=== PATIENT | female | born 1950 | race African-American/Black ===

== ENCOUNTER 2017-02-06 22:25 | Inpatient (IN) | payer SELFPAY ==
[~2017-02-06] VITALS: Ht 162.6 cm; Wt 79.5 kg
[~2017-02-06 22:25] MED LIST: NORVASC2.5 MG OR
--- NOTE | 2017-02-06 22:25 | NUR ---
PATIENT WAS BROUIGHT INTO THE ER VIA W/[employer] SERVICES UNRESPONSIVE, DIAPHORETIC, GURGLING AGPONAL RESPIRATIONS. FLACCID. IMMEDIATELY PLACED ON GURNEY IN ROOM [address] CHAVEZ AND RESPIRATORY THERAPIST IN ATTENDANCE. SEE CODE SHEET.
[2017-02-06 22:56] LABS: HEMATOCRIT 47.1 % (37.0-47.0); HEMOGLOBIN 13.9 g/dl (12.0-16.0); IMMATURE GRANULOCYTES 2.8 % (0.0-1.0); MEAN CELL VOLUME 99.2 fL CALC (80.0-100.0); MEAN CORPUSCULAR HGB 29.3 pG CALC (26.0-32.0); MEAN CORPUSCULAR HGB CONC 29.5 g/L CALC (32.0-36.0); NEUT# 2.92 thou/uL (2.00-7.15); RED BLOOD COUNT 4.75 mill/uL (4.20-5.60); RED CELL DISTRI WIDTH 14.6 % (11.5-15.5)
[2017-02-06 23:11] LABS: ALBUMIN 3.5 g/dL (3.2-5.0); BILIRUBIN, TOTAL 0.5 mg/dL (0.0-1.4); CALCIUM 12.5 mg/dL (8.4-10.2); CREATININE 1.2 mg/dL (0.5-1.0); POTASSIUM 3.8 mmol/l (3.5-5.1); TOTAL PROTEIN 7.3 g/dL (6.3-8.2)
[2017-02-06 23:14] LABS: ACT PARTIAL THROMBO TIME 30.3 SECONDS (20.0-32.5); INTERNATIONAL NORMALIZED RATIO 1.1 RATIO (0.7-1.3); PROTHROMBIN TIME 11.5 SECONDS (9.0-12.5)
[2017-02-07] VITALS (16 sets, daily range): BP systolic 76–183; BP diastolic 47–82
--- NOTE | 2017-02-07 00:24 | NUR ---
PT CAME IN UNRESPONSIVE WITH SUBSTANCE COMING OUT OF MOUTH. PT WAS INCONTINENT OF URINE. PT WAS WHEELED TO ROOM 10 AND LIFTED ONTO STRETCHER. FULL CODE IN PROGRESS UNTIL 2236. PT RECEIVED LITER OF FLUID AND 2ND LITER UP. LEVOPHED STARTED DUE TO LOW B/P. PT HAD DILATED UNRESPONSIVE PUPILS B/L. [place] CATH INSERTED WITH SCANT AMOUNT OF URINE OUT. BLADDER SCAN DONE 47ML IN BLADDER. PT NOW INTUBATED ON VENT, STILL UNRESPONSIVE. TRIPLE LUMEN CENTRAL LINE INSERTED TO RIGHT NECK.
--- NOTE | 2017-02-07 01:46 | NUR ---
SPOKE WITH SISTER VENITA BENITEZ ABOUT PT'S RESULTS AND PROGNOSIS. PT HAS BEEN UNREPONSIVE THE ENTIRE ADMIT. PT'S PUPILS UNCHANGED, NON-REACTIVE B/L.
--- NOTE | 2017-02-07 03:10 | NUR ---
ATTEMPTED TO CALL SISTER AGAIN AND NO ANSWER. ASKED SGT NELSON ROUTE FAMILY COULD TAKE THAT WAS THE SAFEST TO TRAVEL.
--- NOTE | 2017-02-07 03:23 | NUR ---
REPORT GIVEN TO DANG LEWIS WILL ATTEMPT TO CALL SISTER ONE MORE TIME BEFORE TRANSPORTING TO ICU
--- NOTE | 2017-02-07 03:30 | NUR ---
Admission Note Report Given to: DANG LEWIS Transported by: Wheelchair X Stretcher Transported with: X Nurse X Transporter X Patent IV X O2 X Chipper Machine Operator BAGGED EN ROUTE
--- NOTE | 2017-02-07 03:43 | NUR ---
female pt received to ICU bed 8 via stretcher accompanied by Edin Medina LPN, Jaren Jason RN, and Adam Terry RT; xlg brown loose stool incontinence noted; pericare per staff while on stretcher; pt transferred to bed x5 max assist; assessment completed at this time; unable to obtained past hx from pt/ no family at bedside; pt unresponsive; pupils approx 5mm/ dilated/ non reactive; pt on vent; see vent flowsheet for settings; intubated with 7.0 Fr ETT, secured at the 21cm lip line; resp even and unlabored; NO spontaneous resp noted; lungs coarse throughout; skin color wnl; FiO2 at 100%; no coughing/ gagging noted; hr reg; weak pulses; no edema noted; scd's placed; sb-sr with pvc's on monitor; abd soft/distended with bs present; bm noted per staff; jackson to gravity with cl yellow urine; ua specimen obtained; cath strap reapplied; #22 in lh with levophed infusing at 5mcg/min and ivf per orders; #20 in rh with vanco infusing; all iv meds/ivf changed to RIJ TLC; all lumens flushed and patent with good blood return; discolaration noted to inner thighs, buttocks with no breakdown noted; repositioned; hob at 30 deg; suction at bedside; will continue to monitor closely
--- NOTE | 2017-02-07 04:15 | NUR ---
pt noted with xlg watery brown bm/bm down to ankles; partial bath and complete linen change; pt remains unresponsive; neg corneal reflex, neg barbinski reflex; will continue to monitor
--- NOTE | 2017-02-07 04:17 | NUR ---
TOOK PT TO FLOOR WITH ASSIST OF YANI ABRAMS AND RT MARTA. PT HAD LARGE LIQUID BM. ASSISTED ICU STAFF WITH CLEANING AND CHANGING PT. SOON PT MOVED TO CLEAN BED PT HAD ANOTHER LARGE LIQUID BM. ASSISTED WITH CLEANING AND CHANGING PT AGAIN.
[2017-02-07 04:55] LABS: URINE BILIRUBIN - DIPSTICK NEGATIVE (NEGATIVE); URINE BLOOD DIPSTICK MODERATE (NEGATIVE); URINE CLARITY CLEAR; URINE COLOR YELLOW; URINE GLUCOSE - DIPSTICK NEGATIVE (NEGATIVE); URINE KETONE NEGATIVE (NEGATIVE); URINE LEUK ESTERASE NEGATIVE (NEGATIVE); URINE NITRITE - DIPSTICK NEGATIVE (Negative); URINE PH 5.5 (4.5-8.0); URINE PROTEIN - DIPSTICK TRACE mg/dL (NEG-TRACE); URINE SPECIFIC GRAVITY <=1.005
[2017-02-07 04:57] LABS: BARBITURATES NEGATIVE (NEGATIVE); COCAINE NEGATIVE (NEGATIVE); METHADONE NEGATIVE (NEGATIVE); OXCYCODONE NEGATIVE (NEGATIVE); TETRAHYDROCANNABIONOL NEGATIVE (NEGATIVE); TRICYLIC ANTIDEPRESSANTS NEGATIVE (NEGATIVE)
[2017-02-07 05:11] LABS: URINE BACTERIA FEW hpf; URINE SQUAMOUS EPITHELIAL CELL RARE EPI/hpf (0-FEW); URINE TRICHOMONAS FEW hpf
--- NOTE | 2017-02-07 06:19 | NUR ---
Dr Nolasco notified for ivf; orders received;
--- NOTE | 2017-02-07 06:34 | NUR ---
eyes closed; remains unresponsive; iv patent; no redness or edema noted at sites; vent maintained; repositioned with hob elevated; jackson emptied for 600cc clear yellow urine; bed in lowest position;
--- NOTE | 2017-02-07 06:45 | NUR ---
REPORT RECEIVED FROM DANG LEWIS. PT IS SUPINE AT 30 DEGREES. 7 TAMAZIGHT [address] TUBE IN PLACE TAPED @ 21 CM LIP LINE. PT IS UNRESPONSIVE. LEFT NARE NG TUBE IN PLACE. VENT SETTINGS PER RESPIRATORY SHEET. PT INCONTINENT OF STOOL. PARTIAL BATH AND NEW LINEN PROVIDED. SKIN INTACT. SIDE RAILS UPX2. SAFETY REVIEWED, WILL CONTINUE TO MONITOR.
--- NOTE | 2017-02-07 08:10 | NUR ---
ADDITIONAL FAMILY AT FOR SUPPORT. CANNOT REACH SECOND SISTER FOR COLLABORATION OF PLAN OF CARE RELATED TO NATURAL DISASTER. WILL CONTINUE TO MAKE PHONE CALLS.
--- NOTE | 2017-02-07 09:45 | NUR ---
RT AT BS, FAMILY IN ROOM EXTUBATION IN PROFRESS.
--- NOTE | 2017-02-07 09:56 | NUR ---
FAMILY REMAINS AT BS, NO SPONTANEOUS RESPIRATIONS HR REMAINS AT 55. IVF AND LEVOPHED TURNED OFF AT THIS TIME PER MD ORDER. ADDITIONAL EMOTIONAL SUPPORT PROVIDED TO FAMILY. FAMILY STATE "SHE IS NOT AN ORGAN DONOR, AND WE WANT RETA HOME."
--- NOTE | 2017-02-07 10:04 | NUR ---
TIME OF IS 1000. VERIFIED BY TWO NURSES, DANG ASENCIO AND DANG RODRIGUEZ.
--- NOTE | 2017-02-07 10:15 | NUR ---
[facility] NOTIFIED. ENVIRONMENTAL SCIENTIST WILLY STATES "BECAUSE OF THE NATURAL DISASTER, [facility] IS TEMPORARILY SUSPENDED. REFERANCE NUMBER IS [id number]
--- NOTE | 2017-02-07 10:25 | NUR ---
[facility] HOME NOTIFIED AT THIS TIME. CURRENTLY IN ROUTE TO SUPERVISOR SHUTTLE VENEERING PT.
--- NOTE | 2017-02-07 11:00 | NUR ---
[facility] HERE AT THIS TIME, TO ROUND CORNER CUTTER OPERATOR PT.
== END 2017-02-07 11:00 | disposition expired | DRG 65 ==
LOC: ED 22:25 → ED-I 02-07 → ED 02-07 02:53 → ICU 02-07 02:54
PROVIDERS: Emergency Medicine; ADMIT Internal Medicine; ATTEND Internal Medicine
PROC: 0T9B70Z Drainage of Bladder with Drainage Device, Via Natural or Artificial Opening (ICD-10-PCS; principal; 2017-02-07)
PROC: 5A1935Z Respiratory Ventilation, Less than 24 Consecutive Hours (ICD-10-PCS; 2017-02-07)
PROC: 0BH17EZ Insertion of Endotracheal Airway into Trachea, Via Natural or Artificial Opening (ICD-10-PCS; 2017-02-07)
PROC: 02HV33Z Insertion of Infusion Device into Superior Vena Cava, Percutaneous Approach (ICD-10-PCS; 2017-02-07)
PROC: 5A12012 Performance of Cardiac Output, Single, Manual (ICD-10-PCS; 2017-02-07)
DX: I60.9 Nontraumatic subarachnoid hemorrhage, unspecified (principal); E87.2 Acidosis; I46.8 Cardiac arrest due to other underlying condition; I10 Essential (primary) hypertension; R40.2432 Glasgow coma scale score 3-8, at arrival to emergency department; Z51.5 Encounter for palliative care
CPT/HCPCS: J0282